=== PATIENT | female | born 1980 | race Caucasian/White ===

== ENCOUNTER 2019-12-07 18:49 | Emergency (ER) | payer OTHER ==
[~2019-12-07] VITALS: Ht 157.5 cm; Wt 87.8 kg
[2019-12-07] MEDS ORDERED: diphenhydrAMINE 50 MG/ML VIAL IVP ONE (19:45)
[2019-12-07] MEDS ORDERED: IV NORMAL SALINE 1,000ML 1,000 ML IV ONE (19:45)
[2019-12-07] MEDS ORDERED: METOCLOPRAMIDE HCL 10 MG/2 ML VIAL. IVP ONE (19:45)
[2019-12-07] MEDS ORDERED: KETOROLAC 30 MG/ML VIAL. IVP ONE (19:45)
--- NOTE | 2019-12-07 19:46 | PHYS DOC ---
Past History Past Medical History: Asthma, Other Additional Past Medical Histor: chronic sinusitis Past Surgical History: , Other Additional Past Surgical Histo: sinus surgery Alcohol Use: None General Adult EDM: Chief Complaint: HEADACHE HPI: HPI: 39-year-old female presents with headache. Patient has a headache that is a tension sensation behind her eyes. Patient has these on occasion. She has chronic sinusitis with polyp development. She is on a new medication that same biweekly injectable to help with her polyps. It has been working for her. She developed this headache on Wednesday and if she gets a headache prior to her injection on Wednesday the injection has made it better. This time this did not improve her headache at all. Patient presents tonight because she has been vomiting today. She went to urgent care and was placed on an antibiotic, but the patient cannot keep anything down. She denies any falls or trauma. This headache feels very similar to previous. She denies fever or chills. Review of Systems: Review of Systems: Constitutional: Denies fever or chills Eyes: Denies change in visual acuity HENT: Denies nasal congestion or sore throat Respiratory: Denies cough or shortness of breath Cardiovascular: Denies chest pain or edema GI: nausea, vomiting. Denies abdominal pain, bloody stools or diarrhea : Denies dysuria Musculoskeletal: Denies back pain or joint pain Integument: Denies rash Neurologic: Headache. Denies focal weakness or sensory changes Endocrine: Denies polyuria or polydipsia Lymphatic: Denies swollen glands Psychiatric: Denies depression or anxiety Heart Score: Risk Factors: Risk Factors: DM, Current or recent (<one month) smoker, HTN, HLP, family his tory of CAD, obesity. Risk Scores: Score 0 - 3: 2.5% MACE over next 6 weeks - Discharge Home Score 4 - 6: 20.3% MACE over next 6 weeks - Admit for Clinical Observation Score 7 - 10: 72.7% MACE over next 6 weeks - Early Invasive Strategies Current Medications: Current Meds: Current Medications Medications (Trade) Dose Ordered Sig/Devin Start Time Stop Time Status Last Admin Dose Admin Diphenhydramine HCl (Benadryl) 25 mg 1X ONCE 12/07/19 19:45 12/07/19 19:46 UNV Ketorolac Tromethamine (Toradol 30mg Vial) 30 mg 1X ONCE 12/07/19 19:45 12/07/19 19:46 Metoclopramide HCl (Reglan Vial) 10 mg 1X ONCE 12/07/19 19:45 12/07/19 19:46 Sodium Chloride 1,000 ml @ 1,000 mls/hr 1X ONCE 12/07/19 19:45 12/07/19 20:44 Allergies: Allergies: Allergies Coded Allergies Type Severity Reaction Last Updated Verified No Known Drug Allergies 12/07/19 No Physical Exam: PE: Constitutional: Well developed, well nourished, obese, no acute distress, non- toxic appearance. [] HENT: Normocephalic, atraumatic, bilateral external ears normal, oropharynx moist, no oral exudates, nose normal. [] Eyes: PERRLA, EOMI, conjunctiva normal, no discharge. [] Neck: Normal range of motion, no tenderness, supple, no stridor. [] Cardiovascular: Heart rate regular rhythm, no murmur [] Lungs & Thorax: Bilateral breath sounds clear to auscultation [] Abdomen: Bowel sounds normal, soft, no tenderness, no masses, no pulsatile masses. [] Skin: Warm, dry, no erythema, no rash. [] Back: No tenderness, no CVA tenderness. [] Extremities: No tenderness, no cyanosis, no clubbing, ROM intact, no edema. [] Neurologic: Alert and oriented X 3, normal motor function, normal sensory function, no focal deficits noted. [] Psychologic: Affect normal, judgement normal, mood normal. [] Current Patient Data: Vital Signs: Vital Signs Date Time Temp Pulse Resp B/P (MAP) Pulse Ox O2 Delivery O2 Flow Rate FiO2 12/07/19 18:58 98.2 76 20 142/85 (104) 95 Room Air EKG: EKG: [] Radiology/Procedures: Radiology/Procedures: [] Course & Med Decision Making: Course & Med Decision Making Pertinent Labs and Imaging studies reviewed. (See chart for details) For the patient's headache, I have given her 1 L normal saline, 10 mg Reglan, 25 mg of Benadryl, 30 mg of Toradol. Her headache has improved significantly. Her labs are unremarkable. She is stable for discharge at this time. [] Dragon Disclaimer: Dragon Disclaimer: This electronic medical record was generated, in whole or in part, using a voice recognition dictation system. Departure Departure: Impression: Primary Impression: Headache Disposition: 01 DC HOME SELF CARE/HOMELESS Condition: IMPROVED Referrals: NON,STAFF (PCP) Patient Instructions: Headaches, Analgesic Rebound BUTCH SOLIZ DO Dec 07, 2019 19:46
[2019-12-07 20:24] LABS: BASO # 0.1 x10^3/uL (0.0-0.2); BASO % 1 % (0-3); EOS # 0.1 x10^3/uL (0.0-0.7); EOS % 1 % (0-3); HEMATOCRIT 42.8 % (36.0-47.0); LYMPH # 1.7 x10^3/uL (1.0-4.8); LYMPH % 18 % (24-48); MEAN CORPUSCULAR HEMOGLOBIN 29 pg (25-35); MEAN CORPUSCULAR HGB CONC 33 g/dL (31-37); MEAN CORPUSCULAR VOLUME 88 fL (79-100); MONO # 0.6 x10^3/uL (0.0-1.1); MONO % 7 % (0-9); NEUT # 6.8 x10^3uL (1.8-7.7); NEUT % 73 % (31-73); PLATELET COUNT 315 x10^3/uL (140-400); RED BLOOD COUNT 4.87 x10^6/uL (3.50-5.40); RED CELL DISTRIBUTION WIDTH 13.6 % (11.5-14.5); WHITE BLOOD COUNT 9.3 x10^3/uL (4.0-11.0)
[2019-12-07 20:29] LABS: CALCIUM 9.6 mg/dL (8.5-10.1); CREATININE 0.6 mg/dL (0.6-1.0); GFR 111.9; POTASSIUM 4.7 mmol/L (3.5-5.1)
[2019-12-07 20:35] LABS: ALBUMIN 3.7 g/dL (3.4-5.0); ALBUMIN/GLOBULIN RATIO 0.8 (1.0-1.7); TOTAL BILIRUBIN 0.4 mg/dL (0.2-1.0); TOTAL PROTEIN 8.1 g/dL (6.4-8.2)
[2019-12-07 21:45] LABS: BILIRUBIN,URINE NEG (NEG); CLARITY,URINE CLEAR; COLOR,URINE COLORLESS; GLUCOSE,URINE NEG (NEG)
[2019-12-07 21:46] LABS: BACTERIA,URINE 0 /HPF (0-FEW); NITRITE,URINE NEG (NEG); RBC,URINE 0 /HPF (0-2); SQUAMOUS EPITHELIAL CELL,UR OCC /LPF; UROBILINOGEN,URINE 0.2 mg/dL (0.2 mg/dL); WBC,URINE 0 /HPF (0-4)
[2019-12-07 21:56] VITALS: BP 134/89
== END 2019-12-07 21:58 | disposition home or self-care (01) ==
LOC: ER 18:49
DX: R51.9 Headache, unspecified (principal); R11.2 Nausea with vomiting, unspecified; J45.909 Unspecified asthma, uncomplicated
CPT/HCPCS: 36415; 80053; 81001; 85025; 96361; 96374; 96375; 99284; J1200; J1885; J2765; J7030

== ENCOUNTER 2020-06-22 15:19 | Emergency (ER) | payer OTHER ==
[~2020-06-22] VITALS: Ht 157.5 cm; Wt 84.5 kg
[2020-06-22] MEDS ORDERED: KETOROLAC 30 MG/ML VIAL. IVP ONE (15:45)
[2020-06-22] MEDS ORDERED: FAMOTIDINE 20 MG/2 ML VIAL IVP ONE (15:45)
[2020-06-22] MEDS ORDERED: IV NORMAL SALINE 1,000ML 1,000 ML IV ONE (15:45)
[2020-06-22 15:58] VITALS: BP 142/84
[2020-06-22] MEDS ORDERED: IOHEXOL 300 MG/ML 75 ML VIAL. IV ONE (16:00)
[2020-06-22 16:08] LABS: BASO # 0.1 x10^3/uL (0.0-0.2); BASO % 1 % (0-3); EOS # 0.4 x10^3/uL (0.0-0.7); EOS % 5 % (0-3); HEMATOCRIT 36.5 % (36.0-47.0); LYMPH # 1.9 x10^3/uL (1.0-4.8); LYMPH % 23 % (24-48); MEAN CORPUSCULAR HEMOGLOBIN 27 pg (25-35); MEAN CORPUSCULAR HGB CONC 33 g/dL (31-37); MEAN CORPUSCULAR VOLUME 83 fL (79-100); MONO # 0.6 x10^3/uL (0.0-1.1); MONO % 8 % (0-9); NEUT # 5.3 x10^3uL (1.8-7.7); NEUT % 64 % (31-73); PLATELET COUNT 279 x10^3/uL (140-400); RED BLOOD COUNT 4.39 x10^6/uL (3.50-5.40); RED CELL DISTRIBUTION WIDTH 15.9 % (11.5-14.5); WHITE BLOOD COUNT 8.2 x10^3/uL (4.0-11.0)
--- NOTE | 2020-06-22 17:06 | RAD ---
EXAM: CT Abdomen and Pelvis with IV contrast CLINICAL HISTORY: abd pain after tummy tuck in Dec, diarrhea COMPARISON: none TECHNIQUE: Helical CT of the abdomen and pelvis was performed following the administration of intrave nous contrast. Axial, coronal and sagittal reformatted images were generated. PQRS compliance statement - One or more of the following individualized dose reduction techniques wer e utilized for this study: 1. Automated exposure control 2. Adjustment of the mA and/or kV according to patient size 3. Use of iterative reconstruction technique FINDINGS: Lower Chest: Lung bases are clear Abdomen and Pelvis: Hepatic hypoattenuation likely fatty liver. Gallbladder is contracted. Spleen is unremarkable. Adrena l glands are normal. Pancreas is normal in appearance. Symmetric nephrograms. No focal renal lesion. No hydronephrosis. No hydroureter. Bladder wall thickening likely cystitis. Uterus and adnexa are unr emarkable. Inguinal lymph nodes are mildly prominent. No abdominal or pelvic lymphadenopathy. No abdo gena or pelvic ascites. Postsurgical changes anterior abdomen. Bones: Unremarkable IMPRESSION: 1. Post surgical changes anterior abdomen concordant with surgery described in the clinical history. 2. Hepatic hypoattenuation, likely fatty liver. Electronically signed by: Tuan Tran MD (06/22/2020 5:04 PM) [facility]
[2020-06-22 17:22] LABS: CALCIUM 9.3 mg/dL (8.5-10.1); CREATININE 0.6 mg/dL (0.6-1.0); GFR 111.9; POTASSIUM 3.8 mmol/L (3.5-5.1)
--- NOTE | 2020-06-22 17:23 | PHYS DOC ---
Past History Past Medical History: Asthma, Other Additional Past Medical Histor: chronic sinusitis Past Surgical History: , Other Additional Past Surgical Histo: sinus surgery; tummy tuck/hernia repair january 2020 Alcohol Use: None Adult General Chief Complaint Chief Complaint: ABDOMINAL PAIN HPI HPI Patient is a female with a history of asthma who presents today complaining of mild intermittent left-sided abdominal pain, symptoms began in January 2020 after having a tummy tuck and umbilical hernia repair. She states she has followed up with the surgeon who did the procedure who told her she has abdominal spasms. She states she was told if symptoms do not go away or get w orse she needs to be seen in the ED. She states symptoms have gotten worse. Describes the pain as sharp and intermittent. Denies anything specifically exacerbating or relieving the pain. She is also complaining of diarrhea for the last couple hours. Review of Systems Review of Systems Constitutional: Denies fever or chills [] Eyes: Denies change in visual acuity, redness, or eye pain [] HENT: Denies nasal congestion or sore throat [] Respiratory: Denies cough or shortness of breath [] Cardiovascular: No additional information not addressed in HPI [] GI: Reports abdominal pain and diarrhea. Denies nausea, vomiting, bloody stools : Denies dysuria or hematuria [] Musculoskeletal: Denies back pain or joint pain [] Integument: Denies rash or skin lesions [] Neurologic: Denies headache, focal weakness or sensory changes [] All other systems were reviewed and found to be within normal limits, except as documented in this note. Current Medications Current Medications Current Medications Medications (Trade) Dose Ordered Sig/Devin Start Time Stop Time Status Last Admin Dose Admin Famotidine (Pepcid Vial) 20 mg 1X ONCE 06/22/20 15:45 06/22/20 15:46 DC 06/22/20 16:36 20 MG Iohexol (Omnipaque 300 Mg/ml) 75 ml 1X ONCE 06/22/20 16:00 06/22/20 16:01 DC 06/22/20 16:00 75 ML Ketorolac Tromethamine (Toradol 30mg Vial) 30 mg 1X ONCE 06/22/20 15:45 06/22/20 15:46 DC 06/22/20 16:36 30 MG Sodium Chloride 1,000 ml @ 1,000 mls/hr 1X ONCE 06/22/20 15:45 06/22/20 16:44 DC 06/22/20 16:35 1,000 MLS/HR Allergies Allergies Allergies Coded Allergies Type Severity Reaction Last Updated Verified No Known Drug Allergies 12/07/19 No Physical Exam Physical Exam Constitutional: Well developed, well nourished, no acute distress, non-toxic appearance. [] HENT: Normocephalic, atraumatic, bilateral external ears normal, oropharynx m oist, no oral exudates, nose normal. [] Eyes: PERRLA, EOMI, conjunctiva normal, no discharge. [] Neck: Normal range of motion, no tenderness, supple, no stridor. [] Cardiovascular:Heart rate regular rhythm, no murmur [] Lungs & Thorax: Bilateral breath sounds clear to auscultation [] Abdomen: Lower abdomen with a well approximated laceration site consistent with a time intact, no signs of infection, the umbilicus was also tacked into the laceration hence not visible. Bowel sounds normal, soft, no tenderness, no masses, no pulsatile masses. [] Skin: Warm, dry, no erythema, no rash. [] Back: No tenderness, no CVA tenderness. [] Extremities: No tenderness, no cyanosis, no clubbing, ROM intact, no edema. [] Neurologic: Alert and oriented X 3, normal motor function, normal sensory function, no focal deficits noted. [] Psychologic: Affect normal, judgement normal, mood normal. [] Current Patient Data Vital Signs Vital Signs Date Time Temp Pulse Resp B/P (MAP) Pulse Ox O2 Delivery O2 Flow Rate FiO2 06/22/20 15:58 88 18 142/84 (103) 99 Lab Results Laboratory Tests Test 06/22/20 15:46 06/22/20 16:39 White Blood Count 8.2 x10^3/uL (4.0-11.0) Red Blood Count 4.39 x10^6/uL (3.50-5.40) Hemoglobin 12.0 g/dL (12.0-15.5) Hematocrit 36.5 % (36.0-47.0) Mean Corpuscular Volume 83 fL (79-100) Mean Corpuscular Hemoglobin 27 pg (25-35) Mean Corpuscular Hemoglobin Concent 33 g/dL (31-37) Red Cell Distribution Width 15.9 % (11.5-14.5) H Platelet Count 279 x10^3/uL (140-400) Neutrophils (%) (Auto) 64 % (31-73) Lymphocytes (%) (Auto) 23 % (24-48) L Monocytes (%) (Auto) 8 % (0-9) Eosinophils (%) (Auto) 5 % (0-3) H Basophils (%) (Auto) 1 % (0-3) Neutrophils # (Auto) 5.3 x10^3uL (1.8-7.7) Lymphocytes # (Auto) 1.9 x10^3/uL (1.0-4.8) Monocytes # (Auto) 0.6 x10^3/uL (0.0-1.1) Eosinophils # (Auto) 0.4 x10^3/uL (0.0-0.7) Basophils # (Auto) 0.1 x10^3/uL (0.0-0.2) POC Urine HCG, Qualitative hcg negative (Negative) EKG EKG [] Radiology/Procedures Radiology/Procedures []PROCEDURE: CT ABD PELV W/ IV CONTRST ONLY EXAM: CT Abdomen and Pelvis with IV contrast CLINICAL HISTORY: abd pain after tummy tuck in Dec, diarrhea COMPARISON: none TECHNIQUE: Helical CT of the abdomen and pelvis was performed following the ad ministration of intravenous contrast. Axial, coronal and sagittal reformatted images were generated. PQRS compliance statement - One or more of the following individualized dose reduction techniques were utilized for this study: 1. Automated exposure control 2. Adjustment of the mA and/or kV according to patient size 3. Use of iterative reconstruction technique FINDINGS: Lower Chest: Lung bases are clear Abdomen and Pelvis: Hepatic hypoattenuation likely fatty liver. Gallbladder is contracted. Spleen is unremarkable. Adrenal glands are normal. Pancreas is normal in appearance. Symmetric nephrograms. No focal renal lesion. No hydronephrosis. No hydroureter. Bladder wall thickening likely cystitis. Uterus and adnexa are unremarkable. Inguinal lymph nodes are mildly prominent. No abdominal or pelvic lymphadenopathy. No abdominal or pelvic ascites. Postsurgical changes anterior a bdomen. Bones: Unremarkable IMPRESSION: 1. Post surgical changes anterior abdomen concordant with surgery described in the clinical history. 2. Hepatic hypoattenuation, likely fatty liver. Electronically signed by: Tuan Tran MD (06/22/2020 5:04 PM) [facility] DICTATED AND SIGNED BY: TUAN TRAN MD DATE: 06/22/201653 CC: SCOTT COURTNEY APRN; PCP,UNKNOWN ~MTH0 0 Heart Score C/O Chest Pain: N/A Risk Factors: Risk Factors: DM, Current or recent (<one month) smoker, HTN, HLP, family history of CAD, obesity. Risk Scores: Risk Factors: DM, Current or recent (<one month) smoker, HTN, HLP, family history of CAD, obesity. Course & Med Decision Making Course & Med Decision Making Pertinent Labs and Imaging studies reviewed. (See chart for details) This is a 39-year-old female patient presenting to the ED today complaining of abdominal pain, symptoms of been going on since January after having a tummy tuck with umbilical hernia repair. She has been seen by her surgeon who told her she could have abdominal spasms. CT of the abdomen is negative. Negative urine hCG. CBC, CMP UA with no acute findings. D/c to home. F/u with her own doctor next week Dragon Disclaimer Dragon Disclaimer This electronic medical record was generated, in whole or in part, using a voice recognition dictation system. Departure Departure: Impression: Primary Impression: Abdominal pain Additional Impression: Diarrhea Disposition: HOME / SELF CARE / HOMELESS Condition: STABLE Referrals: PCP,UNKNOWN (PCP) Follow-up with your doctor next week Patient Instructions: Abdominal Pain (Nonspecific), Diarrhea, [id number] Additional Instructions: You were evaluated in the emergency room, your CAT scan of the abdomen and pelvis is negative for any acute findings, your lab work is also negative for any acute findings. Please follow-up with your doctor next week. You can take [id number] Imodium as needed for your diarrhea Problem Qualifiers Primary Impression: Abdominal pain Abdominal location: left upper quadrant Qualified Codes: R10.12 - Left upper quadrant pain Additional Impression: Diarrhea Diarrhea type: unspecified type Qualified Codes: R19.7 - Diarrhea, unspecified SCOTT COURTNEY APRN June 22, 2020 17:23
[2020-06-22 17:28] LABS: ALBUMIN 3.7 g/dL (3.4-5.0); ALBUMIN/GLOBULIN RATIO 0.9 (1.0-1.7); TOTAL BILIRUBIN 0.1 mg/dL (0.2-1.0); TOTAL PROTEIN 7.9 g/dL (6.4-8.2)
[2020-06-22 17:41] LABS: BILIRUBIN,URINE NEG (NEG); CLARITY,URINE CLEAR; COLOR,URINE YELLOW; GLUCOSE,URINE NEG (NEG)
[2020-06-22 17:42] LABS: BACTERIA,URINE 0 /HPF (0-FEW); NITRITE,URINE NEG (NEG); RBC,URINE 0 /HPF (0-2); UROBILINOGEN,URINE 0.2 mg/dL (0.2 mg/dL); WBC,URINE 0 /HPF (0-4)
== END 2020-06-22 17:57 | disposition home or self-care (01) ==
LOC: ER 15:19
DX: R10.12 Left upper quadrant pain (principal); R19.7 Diarrhea, unspecified; J45.909 Unspecified asthma, uncomplicated; Z98.890 Other specified postprocedural states
CPT/HCPCS: 36415; 74177; 80053; 81001; 81025; 83690; 85025; 96361; 96374; 96375; 99285; J1885; J3490; J7030; Q9967